=== PATIENT | female | born 1970 | race Caucasian/White ===

== ENCOUNTER 2020-08-19 12:04 | Emergency (ER) | payer MEDICAID ==
[~2020-08-19] VITALS: Ht 154.9 cm; Wt 87.5 kg
[2020-08-19 12:12] VITALS: Ht 154.9 cm; Wt 87.5 kg
[2020-08-19 12:45] LABS: BASOPHIL % 0.3 % (0-2); PLATELET COUNT 378 x10^3mcL (130-400); RED CELL DISTRIBUTION WIDTH 14.3 % (11.5-14.5)
[2020-08-19 12:46] LABS: microscopic required? YES; urine erythrocyte 2+ (NEGATIVE)
[2020-08-19 13:12] LABS: CALCIUM 8.9 mg/dL (8.5-10.1); CARBON DIOXIDE 32.1 mmol/L (21-32); CHLORIDE SERUM 102 mmol/L (98-107); CREATININE SERUM 0.7 mg/dL (0.6-1.0); GFR1 > 60 mL/min; GLUCOSE SERUM 126 mg/dL (74-106); POTASSIUM SERUM 3.7 mmol/L (3.5-5.1); SODIUM SERUM 139 mmol/L (136-145)
[2020-08-19 13:16] LABS: ALKALINE PHOSPHATASE 123 U/L (46-116); ALT/SGPT 47 U/L (14-59); AMYLASE 34 U/L (25-115); AST/SGOT 19 U/L (15-37); BILIRUBIN TOTAL 0.21 mg/dL (0.20-1.00); LIPASE 67 IU/L (73-393); TOTAL PROTEIN, SERUM 7.7 g/dL (6.4-8.2)
[2020-08-19 13:45] LABS: ALBUMIN 3.2 g/dL (3.4-5.0)
[2020-08-19 14:55] VITALS: BP 127/74
== END 2020-08-19 14:55 | disposition home or self-care (01) ==
LOC: ED 12:04
PROVIDERS: Emergency Medicine
DX: N39.0 Urinary tract infection, site not specified (principal)

== ENCOUNTER 2020-08-28 11:30 | Emergency (ER) | payer MEDICAID ==
[~2020-08-28] VITALS: Ht 160 cm; Wt 87.8 kg
[2020-08-28 11:41] VITALS: Ht 160 cm; Wt 87.8 kg
[2020-08-28 12:55] LABS: RED CELL DISTRIBUTION WIDTH 13.8 % (11.5-14.5)
[2020-08-28 13:00] LABS: CARBON DIOXIDE 32.3 mmol/L (21-32); CHLORIDE SERUM 104 mmol/L (98-107); CREATININE SERUM 0.6 mg/dL (0.6-1.0); GFR1 > 60 mL/min; GLUCOSE SERUM 93 mg/dL (74-106); POTASSIUM SERUM 4.3 mmol/L (3.5-5.1); SODIUM SERUM 138 mmol/L (136-145)
[2020-08-28 13:06] LABS: BASOPHIL % 5.5 % (0-2); PLATELET COUNT 435 x10^3mcL (130-400)
[2020-08-28 13:09] LABS: ALBUMIN 3.4 g/dL (3.4-5.0); ALKALINE PHOSPHATASE 102 U/L (46-116); ALT/SGPT 39 U/L (14-59); AST/SGOT 24 U/L (15-37); BILIRUBIN TOTAL 0.2 mg/dL (0.20-1.00); LIPASE 66 IU/L (73-393); TOTAL PROTEIN, SERUM 7.6 g/dL (6.4-8.2)
[2020-08-28 16:04] VITALS: BP 134/78
== END 2020-08-28 16:04 | disposition home or self-care (01) ==
LOC: ED 11:30
PROVIDERS: Student in an Organized Health Care Education/Training Program
DX: K62.89 Other specified diseases of anus and rectum (principal); R19.7 Diarrhea, unspecified; R10.13 Epigastric pain
CPT/HCPCS: Q9967